=== PATIENT | male | born 1930 | race Caucasian/White ===

== ENCOUNTER 2017-10-28 17:57 | Emergency (ER) | payer MEDICARE ==
[~2017-10-28] VITALS: Ht 172.7 cm; Wt 104.3 kg
[2017-10-28] MEDS ORDERED: CHOL10002 PO (18:36)
[2017-10-28] MEDS ORDERED: SENN187 PO (18:36)
[2017-10-28] MEDS ORDERED: PHENY100ER PO (18:37)
[2017-10-28 18:38] LABS: Source, Urine Catheter
[2017-10-28 18:56] LABS: Appearance, Urine Cloudy (Clear); Bilirubin, Urine Neg (Neg); Blood, Urine 5+ (Neg); Color, Urine Yellow (P-Yellow); Glucose Qualitative, Urine Neg (Neg); Ketones, Urine Neg (Neg); Leukocyte Esterase, Urine 3+ (Neg); Nitrite, Urine Neg (Neg); Protein, Urine 3+ (Neg); Urobilinogen, Urine NORM (Normal)
[2017-10-28 19:13] LABS: Bacteria Many /hpf; Squamous Epithelial Cells Few /hpf (Few); White Blood Cells, Urine TNTC /hpf (0-5)
[2017-10-28] MEDS ORDERED: CEFD300 PO (19:30)
== END 2017-10-28 21:16 | disposition home or self-care (01) ==
LOC: ER 17:57
PROVIDERS: Emergency Medicine
DX: N39.0 Urinary tract infection, site not specified (principal); N30.90 Cystitis, unspecified without hematuria
CPT/HCPCS: 51702; 81001; 87077; 87086; 87186; 99283

== ENCOUNTER 2017-11-08 12:45 | Emergency (ER) | payer MEDICARE ==
[~2017-11-08] VITALS: Ht 175.3 cm; Wt 72.6 kg
[~2017-11-08 12:45] MED LIST: CEFD300 PO; CHOL10002 PO; PHENY100ER PO; SENN187 PO
[2017-11-08] MEDS ORDERED: LEVE500 PO (12:56)
[2017-11-08] MEDS ORDERED: CIPR500 PO (12:56)
[2017-11-08 14:45] LABS: Source, Urine Catheter
[2017-11-08 15:08] LABS: Bilirubin, Urine Neg (Neg); Blood, Urine 5+ (Neg); Glucose Qualitative, Urine Neg (Neg); Ketones, Urine Neg (Neg); Leukocyte Esterase, Urine 3+ (Neg); Nitrite, Urine Neg (Neg); Protein, Urine 2+ (Neg); Urobilinogen, Urine NORM (Normal)
[2017-11-08 15:18] LABS: Appearance, Urine Clear (Clear); Color, Urine Yellow (P-Yellow)
[2017-11-08 15:19] LABS: Red Blood Cells, Urine 25-50 /hpf (0-2)
[2017-11-08 15:20] LABS: White Blood Cells, Urine 25-50 /hpf (0-5)
[2017-11-08 15:21] LABS: Bacteria Few /hpf; Squamous Epithelial Cells Rare /hpf (Few)
== END 2017-11-08 15:50 | disposition home or self-care (01) ==
LOC: ER 12:45
PROVIDERS: Emergency Medicine
DX: R33.9 Retention of urine, unspecified (principal); Z79.899 Other long term (current) drug therapy; Z79.2 Long term (current) use of antibiotics; Z87.891 Personal history of nicotine dependence
CPT/HCPCS: 81001; 87086; 99283